=== PATIENT | female | born 1945 | race Caucasian/White ===

== ENCOUNTER 2022-05-29 09:45 | Inpatient (IN) ==
[2022-05-29] MEDS ORDERED: SODIUM CHLORIDE 0.9% 500 ML IV STA ×2 (10:06→11:15)
[2022-05-29 10:36] LABS: Basophils % 0.3 % (0.0-0.8); Eosinophils % 0.5 % (0.00-10.9); Hematocrit 40.7 VOL% (35.7-47.0); Hemoglobin 13.1 GM/DL (12.0-16.0); Immature Granulocytes % 0.3 %; Immature Granulocytes Absolute 0.03 #; Lymphocytes # 1.5 10*3/uL (1.4-4.0); Lymphocytes % 17.4 % (21.3-54.2); Mean Corpuscular HGB Conc 32.2 GM/DL (32-36); Mean Corpuscular Volume 82.7 FL (87-102); Mean Platelet Volume 10.4 FL (9.6-12.0); Monocytes # 0.8 10*3/uL (0.11-0.8); Monocytes % 9.2 % (1.7-12.7); Neutrophils % 72.3 % (38.7-73.9); Platelet Count 280 T/CUMM (130-400); Red Blood Count 4.92 MC/CUMM (3.8-5.5); Red Cell Distribution Width 16.1 % (9.3-17.3); White Blood Count 8.6 T/CUMM (4-12)
[2022-05-29 10:46] LABS: INR 0.9; PT Patient Result 10.5 SECS (10.5-12.0)
[2022-05-29 10:59] LABS: Albumin 3.4 G/DL (3.4-5.0); Bilirubin,Total 0.6 MG/DL (0.20-1.00); Calcium 9.5 MG/DL (8.5-10.1); Osmolality,Calculated 279.3 MOS/KG (273-304); Potassium 3.8 MMOL/L (3.5-5.1); Total Protein 6.6 G/DL (6.4-8.2)
[2022-05-29] MEDS ORDERED: AZITHROMYCIN INJ 500 MG in SODIUM CHLORIDE 0.9% 250 ML IV STA (11:14)
[2022-05-29] MEDS ORDERED: cefTRIAXone 1,000 MG in SODIUM CHLORIDE 0.9% 100 ML IV STA (11:14)
[2022-05-29] MEDS ORDERED: GLUCAGON 1 MG VIAL IM PRN (12:48)
[2022-05-29] MEDS ORDERED: DEXTROSE 10% 250 ML BAG IV PRN (12:53)
[2022-05-29] MEDS ORDERED: diphenhydrAMINE CAP 25 MG CAPSULE PO PRN (12:56)
[2022-05-29] MEDS ORDERED: HYDROmorphone 2 MG TABLET PO PRN (12:56)
[2022-05-29] MEDS: GABAPENTIN 300 MG CAPSULE PO SCH ×3 (14:22→20:23)
[2022-05-29] MEDS: HEPARIN 5,000 UNIT/1 ML VIAL SUBCUT SCH ×2 (14:22→20:23)
[2022-05-29] MEDS: ASCORBIC ACID 500 MG TABLET PO SCH (20:23)
[2022-05-29] MEDS: ACETAMINOPHEN 500 MG TABLET PO PRN (20:24)
[2022-05-29] MEDS: TACROLIMUS 0.5 MG CAPSULE PO SCH (20:24)
[2022-05-29] MEDS: FAMOTIDINE 20 MG TABLET PO SCH (20:25)
[2022-05-29] MEDS: METOPROLOL TARTRATE 25 MG TABLET PO SCH (21:27)
[2022-05-30] MEDS: HEPARIN 5,000 UNIT/1 ML VIAL SUBCUT SCH ×3 (05:35→21:33)
[2022-05-30] MEDS: LEVOTHYROXINE 50 MCG TABLET PO SCH (05:35)
[2022-05-30 06:27] LABS: Basophils % 0.3 % (0.0-0.8); Eosinophils # 0.1 10*3/uL (0.0-0.87); Eosinophils % 0.4 % (0.00-10.9); Hematocrit 40.1 VOL% (35.7-47.0); Hemoglobin 12.7 GM/DL (12.0-16.0); Immature Granulocytes % 0.5 %; Immature Granulocytes Absolute 0.06 #; Lymphocytes # 2.6 10*3/uL (1.4-4.0); Lymphocytes % 20.6 % (21.3-54.2); Mean Corpuscular HGB Conc 31.7 GM/DL (32-36); Mean Corpuscular Volume 82.7 FL (87-102); Mean Platelet Volume 10.1 FL (9.6-12.0); Monocytes # 0.9 10*3/uL (0.11-0.8); Neutrophils % 71.2 % (38.7-73.9); Platelet Count 267 T/CUMM (130-400); Red Blood Count 4.85 MC/CUMM (3.8-5.5); Red Cell Distribution Width 16.3 % (9.3-17.3); White Blood Count 12.6 T/CUMM (4-12)
[2022-05-30 06:47] LABS: Ferritin 160.5 ng/mL (8-252)
[2022-05-30 06:56] LABS: Calcium 8.8 MG/DL (8.5-10.1); Osmolality,Calculated 280.3 MOS/KG (273-304); Potassium 3.6 MMOL/L (3.5-5.1); Thyroid Stimulating Hormone 3.52 uIU/ml (0.358-3.74)
[2022-05-30] MEDS ORDERED: CHOLECALCIFEROL 1,000 UNIT TABLET PO SCH (09:00)
[2022-05-30] MEDS: DULoxetine 30 MG CAPSULE PO SCH (09:43)
[2022-05-30] MEDS: ATORVASTATIN 20 MG TABLET PO SCH (09:44)
[2022-05-30] MEDS: GABAPENTIN 300 MG CAPSULE PO SCH ×4 (09:44→21:33)
[2022-05-30] MEDS: METOPROLOL TARTRATE 25 MG TABLET PO SCH ×2 (09:44→21:34)
[2022-05-30] MEDS: FAMOTIDINE 20 MG TABLET PO SCH ×2 (09:44→21:34)
[2022-05-30] MEDS: CETIRIZINE 10 MG TABLET PO SCH (09:45)
[2022-05-30] MEDS: ASCORBIC ACID 500 MG TABLET PO SCH ×2 (09:45→21:33)
[2022-05-30] MEDS: MONTELUKAST 10 MG TABLET PO SCH (09:45)
[2022-05-30] MEDS: TACROLIMUS 0.5 MG CAPSULE PO SCH ×2 (09:45→21:34)
[2022-05-30] MEDS: AZITHROMYCIN 250 MG TABLET PO SCH (09:46)
[2022-05-30] MEDS: ZINC GLUCONATE 50 MG TABLET PO SCH (09:46)
[2022-05-30] MEDS: DOCUSATE SODIUM 100 MG CAPSULE PO SCH (09:46)
[2022-05-30] MEDS ORDERED: predniSONE 20 MG TABLET PO ONE (10:00)
[2022-05-30] MEDS: OXYBUTYNIN XL 10 MG TABLET PO SCH (11:01)
[2022-05-31 04:10] LABS: Basophils % 0.1 % (0.0-0.8); Hematocrit 35.1 VOL% (35.7-47.0); Hemoglobin 11.4 GM/DL (12.0-16.0); Immature Granulocytes % 0.6 %; Immature Granulocytes Absolute 0.08 #; Lymphocytes # 1.3 10*3/uL (1.4-4.0); Lymphocytes % 9.7 % (21.3-54.2); Mean Corpuscular HGB Conc 32.5 GM/DL (32-36); Mean Corpuscular Volume 81.4 FL (87-102); Mean Platelet Volume 10.9 FL (9.6-12.0); Monocytes # 0.4 10*3/uL (0.11-0.8); Monocytes % 2.7 % (1.7-12.7); Neutrophils % 86.9 % (38.7-73.9); Platelet Count 268 T/CUMM (130-400); Red Blood Count 4.31 MC/CUMM (3.8-5.5); Red Cell Distribution Width 15.9 % (9.3-17.3); White Blood Count 13.8 T/CUMM (4-12)
[2022-05-31 04:42] LABS: Calcium 8.9 MG/DL (8.5-10.1); Osmolality,Calculated 280.4 MOS/KG (273-304); Potassium 3.9 MMOL/L (3.5-5.1)
[2022-05-31] MEDS: ACETAMINOPHEN 500 MG TABLET PO PRN (04:59)
[2022-05-31] MEDS: HEPARIN 5,000 UNIT/1 ML VIAL SUBCUT SCH (04:59)
[2022-05-31] MEDS: LEVOTHYROXINE 50 MCG TABLET PO SCH (05:20)
[2022-05-31 07:28] VITALS: BP 120/57
[2022-05-31] MEDS: DULoxetine 30 MG CAPSULE PO SCH (08:55)
[2022-05-31] MEDS: ASCORBIC ACID 500 MG TABLET PO SCH (08:55)
[2022-05-31] MEDS: METOPROLOL TARTRATE 25 MG TABLET PO SCH (08:55)
[2022-05-31] MEDS: ZINC GLUCONATE 50 MG TABLET PO SCH (08:55)
[2022-05-31] MEDS: OXYBUTYNIN XL 10 MG TABLET PO SCH (08:56)
[2022-05-31] MEDS: CETIRIZINE 10 MG TABLET PO SCH (08:56)
[2022-05-31] MEDS: FAMOTIDINE 20 MG TABLET PO SCH (08:56)
[2022-05-31] MEDS: MONTELUKAST 10 MG TABLET PO SCH (08:56)
[2022-05-31] MEDS: AZITHROMYCIN 250 MG TABLET PO SCH (08:56)
[2022-05-31] MEDS: GABAPENTIN 300 MG CAPSULE PO SCH (08:56)
[2022-05-31] MEDS: ATORVASTATIN 20 MG TABLET PO SCH (08:56)
[2022-05-31] MEDS: DOCUSATE SODIUM 100 MG CAPSULE PO SCH (08:56)
[2022-05-31] MEDS: TACROLIMUS 0.5 MG CAPSULE PO SCH (08:56)
[2022-05-31] MEDS ORDERED: predniSONE 20 MG TABLET PO SCH (09:00)
[2022-06-03] MEDS ORDERED: TACROLIMUS 0.5 MG CAPSULE PO SCH (09:00)
== END 2022-05-31 11:41 | disposition home or self-care (01) | DRG 177 ==
LOC: N.ED 09:45 → N.EDINP 12:48 → SUATTDRO 12:48 → INTOOBSV 12:48 → OBSVTOIN 12:48 → N.3E 13:45
PROVIDERS: ADMIT Internal Medicine; ATTEND Internal Medicine